=== PATIENT | female | born 1980 | race Caucasian/White ===

== ENCOUNTER 2017-09-10 15:58 | Inpatient (IN) | payer MEDICAID ==
[~2017-09-10] VITALS: Ht 154.9 cm; Wt 65.8 kg
[2017-09-10 16:01] VITALS: BP 124/77
--- NOTE | 2017-09-10 16:05 | NUR ---
Patient ambulated to bed 2. RN evaluating patient at bedside.
--- NOTE | 2017-09-10 16:13 | NUR ---
37/F PT PRESENTS TO ER W/C/O CONSTIPATION x 3 DAYS. PT DENIES INJURY OR TRAUMA, PT DENIES N/V. PAIN 5/10 HEAVINESS INTERMITENT. AAOx4, PERRLA, BREATHING EVEN AND UNLABORED. ERMD NOTIFIED OF PATIENT STATUS.
--- NOTE | 2017-09-10 16:17 | NUR ---
Dr. Davis evaluating patient at bedside.
[2017-09-10] MEDS ORDERED: NACL 0.9% 1,000 ML IV ONE (16:25)
[2017-09-10] MEDS ORDERED: KETOROLAC 30 MG/ML VIAL IVP ONE (16:25)
[2017-09-10] MEDS ORDERED: ONDANSETRON 4 MG/2 ML VIAL IVP ONE (16:25)
--- NOTE | 2017-09-10 16:29 | NUR ---
PHLEB at bedside for blood draw.
[2017-09-10 16:48] LABS: HEMOGLOBIN 14.1 g/dL (12.0-16.0); MEAN CORPUSCULAR HEMOGLOBIN 30 pg (27-31); MEAN CORPUSCULAR HGB CONC 34 g/dL (33-37); MEAN CORPUSCULAR VOLUME 88 fL (80-94); PLATELET COUNT (AUTO) 218 K/uL (140-450); RED BLOOD CELL COUNT(AUTO) 4.68 MIL/uL (4.20-5.40); RED CELL DISTRIBUTION WIDTH 12.7 % (11.6-13.7); WHITE BLOOD COUNT (AUTO) 14.1 K/uL (4.8-10.8)
[2017-09-10 16:53] LABS: APPEARANCE,URINE HAZY (CLEAR); BILIRUBIN,URINE 2+ (NEGATIVE); BLOOD, URINE NEGATIVE (NEGATIVE); COLOR,URINE YELLOW (YELLOW); LEUKOCYTE ESTERASE ,URINE NEGATIVE (NEGATIVE); NITRITE, URINE NEGATIVE (NEGATIVE); PH,URINE 6.5 (5.0-9.0); UGLUCOSE 3+ (NEGATIVE)
[2017-09-10 17:02] LABS: RBC,URINE 0-5 (RARE) /HPF (0-5); WBC,URINE 20-60 /HPF (0-5)
[2017-09-10 17:09] LABS: ALBUMIN 2.8 g/dL (3.4-5.0); ANION GAP 13.7 (8-16); BASOPHILS % (MANUAL) 0 % (0-2); CARBON DIOXIDE 27.4 mmol/L (21-32); CREATININE 0.7 mg/dL (0.6-1.3); EOSINOPHILS % (MANUAL) 0 % (0-4); LYMPHOCYTES % (MANUAL) 12 % (20-46); MONOCYTES % (MANUAL) 2 % (5-12); POTASSIUM 3.1 mmol/L (3.5-5.1); TOTAL BILIRUBIN 0.7 mg/dL (0.0-1.0)
[2017-09-10] MEDS ORDERED: LEVOFLOXACIN 500 MG/D5W PREMIX 100 ML IV ONE (17:25)
[2017-09-10] MEDS ORDERED: KCL 20 MEQ/WATER INJ PREMIX 100 ML IV ONE (17:25)
[2017-09-10] MEDS ORDERED: MAG SULF 2000 MG/WATER PREMIX 50 ML IV ONE ×2 (17:25→22:07)
[2017-09-10] MEDS ORDERED: HYDROcodone/APAP 7.5/325 MG 1 TAB PO PRN ×2 (17:50)
[2017-09-10] MEDS ORDERED: NACL 0.9% 1,000 ML IV SCH (17:50)
[2017-09-10] MEDS ORDERED: ONDANSETRON 4 MG/2 ML VIAL IM/IVP PRN (17:50)
[2017-09-10] MEDS ORDERED: DOCUSATE SODIUM 100 MG GELCAP PO PRN ×2 (17:50)
[2017-09-10] MEDS ORDERED: MORPHINE SULFATE 2 MG/ML SYR IVP PRN ×2 (17:50)
[2017-09-10] MEDS ORDERED: ACETAMINOPHEN 325 MG TAB PO PRN ×2 (17:50)
--- NOTE | 2017-09-10 17:53 | NUR ---
PT RESTING; FAMILY AT BEDSIDE.VSS; PATIENT POSITIONED FOR COMFORT; HOB ELEVATED; BEDRAILS UP X2; BED DOWN. ER MD MADE AWARE OF PT STATUS.
[2017-09-10 18:03] LABS: PROTHROMBIN TIME 10.2 secs (10.8-13.4)
--- NOTE | 2017-09-10 18:25 | NUR ---
RECEIVED PATIENT FROM ER. PATIENT IS AAOX4, AMBULATORY, AND NO SIGNS AND SYMPTOMS OF DISTRESS NOTED AT THIS TIME. LUNG SOUNDS ARE CLEAR, BOWEL SOUNDS ARE ACTIVE. PATIENT DENIES ANY PAIN AT THIS TIME. HAS IV TO LEFT AC 20G, INFUSING K-RIDER AT 25ML/HR. IV SITE IS PATENT, CLEAN, DRY AND INTACT. TELE MONITOR PRESENT. ORIENTED PATIENT TO ROOM, SIDE RAILS UP X2, INSTRUCTED PATIENT METROLOGY SPECIALIST LIGHT AND PLACED WITHIN REACH. SHE VERBALIZED UNDERSTANDING. WILL CONTINUE TO MONITOR.
--- NOTE | 2017-09-10 18:25 | NUR ---
Patient will be admitted to care of DR. ORNELAS. Admited to TELE. Will go to room 104B . Belongings list completed. Report to [facility].
[2017-09-10 19:01] LABS: AMYLASE 75 U/L (25-115); CHOL/HDL RATIO 11.2 (1-4.5); FREE T4 (FREE THYROXINE) 0.95 ng/dL (0.76-1.46); HDL CHOLESTEROL 39 mg/dL (40-60); LIPASE 982 U/L (73-393); MAGNESIUM 1.8 mg/dL (1.8-2.4); PHOSPHORUS 2.8 mg/dL (2.5-4.9); THYROID STIMULATING HORMONE 1.44 uIU/mL (0.34-3.74)
[2017-09-10 19:04] LABS: TRIGLYCERIDES 1238 mg/dL (30-150)
--- NOTE | 2017-09-10 19:27 | NUR ---
ENDORSED PATIENT TO INKJET OPERATOR RN FOR CONTINUITY OF CARE. PATIENT IN STABLE CONDITION.
--- NOTE | 2017-09-10 19:35 | NUR ---
RECEIVED REPORT FROM DAY RN. PATIENT RESTING IN BED, AWAKE ALERT ORIENTED X4, NO S/S OF DISTRESS NOTED, RESPIRATION EVEN AND UNLABORED, IV PATENT AND INTACT, INFUSING NS AT 60ML/HR. CALL LIGHT WITHIN REACH, SAFETY MEASURE ENSURED, WILL CONTINUE TO MONITOR.
--- NOTE | 2017-09-10 19:45 | NUR ---
DR. DELACRUZ PATIENT MAGNESIUM LEVEL IS 1.8 AND SHE HAS AN ORDER OF MAGNESIUM 2000 MG IVP, DR. DELACRUZ SAID," HOLD THE MAGNESIUM FOR NOW, I WILL DOUBLE CHECK AND LET YOU KNOW IF THE PATIENT NEED MAGNESIUM OR NOT."
[2017-09-10] MEDS: NACL 0.9% 1,000 ML IV SCH (19:57)
[2017-09-10 20:00] VITALS: BP 102/61
[2017-09-10] MEDS ORDERED: LACTOBACILLUS RHAMNOSUS GG 1 EACH CAP PO SCH ×2 (21:20→22:55)
[2017-09-10] MEDS ORDERED: POTASSIUM CHLORIDE 40 MEQ, LIDOCAINE 1% 25 MG in NACL 0.9% 250 ML IV ONE (21:20)
[2017-09-10] MEDS ORDERED: HYDROmorphone 1 MG/ML AMP IVP PRN (21:20)
--- NOTE | 2017-09-10 22:06 | NUR ---
DR. DELACRUZ SAID," GO AHEAD GIVE MAGNESIUM SULFATE 2000MG, BECAUSE WE ARE GOING TO ADMINISTER A LOT OF FLUIDS, WHICH WILL BRING DOWN THE MAGNESIUM LEVEL."
[2017-09-11] VITALS: BP 109/68
--- NOTE | 2017-09-11 00:44 | NUR ---
PATIENT WAS SLEEPING, BUT EASY TO AROUSE, NO S/S OF DISTRESS NOTED, RESPIRATION EVEN AND UNLABORED, CALL LIGHT WITHIN REACH, SAFETY MEASURE ENSURED, WILL CONTINUE TO MONITOR.
[2017-09-11] MEDS ORDERED: BISACODYL 5 MG TABEC PO PRN (00:50)
[2017-09-11] MEDS ORDERED: POTASSIUM CHLORIDE 10 MEQ TABER PO ONE (00:50)
[2017-09-11] MEDS: NACL 0.9% 1,000 ML IV SCH ×4 (02:06→19:46)
--- NOTE | 2017-09-11 02:43 | NUR ---
ENDORSED PLAN OF CARE TO CHARGE NURSE PABLO, PATIENT IS SLEEPING, NO S/S OF DISTRESS NOTED, RESPIRATION EVEN AND UNLABORED, PATIENT IS IN STABLE CONDITION.
--- NOTE | 2017-09-11 02:45 | NUR ---
RECEIVED PT FROM [facility]. PT IS SLEEPING, NO SIGNS OF DISTRESS.
--- NOTE | 2017-09-11 03:06 | NUR ---
SEQUENTIAL NOT APPLIED TO BILAT LEGS DUE TO PT AMBULATE TO BR.
[2017-09-11 04:04] VITALS: BP 101/58
--- NOTE | 2017-09-11 04:07 | NUR ---
AWAKE,UP TO BR WITHOUT DIFFICULTY VOIDED. V/S TAKEN. INSTRUCTED TO CALL IF NEEDED HELP.
--- NOTE | 2017-09-11 06:27 | NUR ---
RESTING QUITELY,NO COMPLAINTS.
--- NOTE | 2017-09-11 06:47 | NUR ---
PATIENT HAS BEEN SCREENED AND CATEGORIZED MODERATE NUTRITION RISK. PATIENT WILL BE SEEN WITHIN 3-5 DAYS OF ADMISSION. 09/12/17-09/14/17 PAGE DAN MS, RDN
--- NOTE | 2017-09-11 07:10 | NUR ---
ASSUMED CONTINUITY OF CARE. NO SIGNS AND SYMPTOMS OF ACUTE DISTRESS NOTED. INITIAL ASSESSMENT DONE. KEEP COMFORTABLE ON BED. EXPLAINED DIAGNOSIS, PLAN OF CARE, PAIN MANAGEMENT TEACHING, USE OF CALL LIGHT/BED/TV/BATHROOM. VERBALIZED UNDERSTANDING. CALL LIGHT WITHIN REACH.
[2017-09-11 07:23] LABS: HEMATOCRIT 36.1 % (36-48); HEMOGLOBIN 12.5 g/dL (12.0-16.0); MEAN CORPUSCULAR HEMOGLOBIN 30 pg (27-31); MEAN CORPUSCULAR HGB CONC 35 g/dL (33-37); MEAN CORPUSCULAR VOLUME 88 fL (80-94); PLATELET COUNT (AUTO) 187 K/uL (140-450); RED BLOOD CELL COUNT(AUTO) 4.11 MIL/uL (4.20-5.40); RED CELL DISTRIBUTION WIDTH 12.7 % (11.6-13.7); WHITE BLOOD COUNT (AUTO) 10.3 K/uL (4.8-10.8)
--- NOTE | 2017-09-11 07:29 | NUR ---
Patient's Plan of Care was discussed and reviewed with UC ARCHITECT: BRITT BRICE. RECEIVED PT IN BED AWAKE, ALERT ORIENTEDX4. NO SOB NOTED. DENIES ANY PAIN OR DISCOMFORT AT THIS TIME. SAFETY PRECAUTION IN PLACE. CALL LIGHT WITHIN REACH.
[2017-09-11 07:32] LABS: ANION GAP 12.2 (8-16); CARBON DIOXIDE 24.5 mmol/L (21-32); CREATININE 0.5 mg/dL (0.6-1.3); POTASSIUM 3.7 mmol/L (3.5-5.1)
[2017-09-11 07:42] LABS: CHOL/HDL RATIO 12.9 (1-4.5); HDL CHOLESTEROL 31 mg/dL (40-60)
[2017-09-11 07:43] LABS: TRIGLYCERIDES 911 mg/dL (30-150)
[2017-09-11 07:51] LABS: EOSINOPHILS % (MANUAL) 2 % (0-4); LYMPHOCYTES % (MANUAL) 14 % (20-46); MONOCYTES % (MANUAL) 6 % (5-12)
[2017-09-11 08:00] VITALS: BP 109/62
[2017-09-11] MEDS: ATORVASTATIN 20 MG TAB PO SCH (08:16)
[2017-09-11] MEDS: GEMFIBROZIL 600 MG TAB PO SCH ×2 (08:16→16:51)
[2017-09-11] MEDS: LEVOFLOXACIN 750 MG/D5W PREMIX 150 ML IV SCH (08:58)
[2017-09-11] MEDS: LACTOBACILLUS RHAMNOSUS GG 1 EACH CAP PO SCH (09:52)
[2017-09-11 12:00] VITALS: BP 111/66
--- NOTE | 2017-09-11 12:00 | NUR ---
VITALS SIGNS STABLE. NO C/O PAIN. WILL MONITOR.
--- NOTE | 2017-09-11 13:30 | NUR ---
SILK SCREENER CAME AND SAID THAT CT MACHINE WAS OUT OF SERVICE. EXPLAINED TO PT. ABOUT CT MACHINE WAS DOWN. VERBALIZED UNDERSTANDING. INFORMED CHARGE NURSE VIOLET BEST.
[2017-09-11 16:00] VITALS: BP 112/65
--- NOTE | 2017-09-11 16:06 | NUR ---
WENT TO CT VIA WHEELCHAIR. NO C/O PAIN. IN STABLE CONDITION.
--- NOTE | 2017-09-11 16:25 | NUR ---
BACK FROM CT VIA WHEEL CHAIR. NO C/O PAIN. NO SOB, NOTED. NO C/O N/V. KEEP COMFORTABLE ON BED.
--- NOTE | 2017-09-11 19:18 | NUR ---
BEDSIDE REPORT GIVEN TO ES BEST. IVF INFUSING WELL. IN STABLE CONDITION.
--- NOTE | 2017-09-11 19:35 | NUR ---
RECEIVED FROM AM NURSE AWAKE AND ALERT. FAMILY MEMBERS VISITING. ABLE TO VERBALIZE NEEDS WELL. NO SOB. DENIES ANY PAIN AT THIS TIME. ORIENTED X 4. CALL LIGHT WITH IN REACH AT ALL TIMES. TELEMETRY MONITORING. DX. OF HYPERLIPIDEMIA.
[2017-09-11 20:00] VITALS: BP 106/67
--- NOTE | 2017-09-11 22:12 | NUR ---
PT. AT THIS TIME IS SLEEPING. TELEMETRY [id number].
--- NOTE | 2017-09-12 | NUR ---
SLEEPING. TELEMETRY MONITORING. NO RESTLESSNESS NOTED.
[2017-09-12 00:12] VITALS: BP 110/66
--- NOTE | 2017-09-12 02:00 | NUR ---
AWAKE RT IVF INFILTRATED. DISCONTINUED IVF LAC. INTACT AND TOLERATED WELL. INSERTED WITH NEW IVF SITE TO LEFT HAND #22 BY CHARGE NURSE. GOOD BLOOD RETURN. TOLERATED WELL.
[2017-09-12] MEDS: NACL 0.9% 1,000 ML IV SCH (05:03)
[2017-09-12 05:07] VITALS: BP 94/54
[2017-09-12] MEDS: GEMFIBROZIL 600 MG TAB PO SCH (06:15)
--- NOTE | 2017-09-12 06:20 | NUR ---
SLEPT WELL THIS SHIFT. NO COMPLAINTS OF ANY PAIN DONE. TELEMETRY MONITORING.
[2017-09-12 06:53] LABS: BASOPHILS % (AUTO) 0.2 % (0.0-2.0); EOSINOPHILS # (AUTO) 0.1 K/uL (0-0.4); EOSINOPHILS % (AUTO) 1.3 % (0.0-4.0); HEMATOCRIT 35.5 % (36-48); HEMOGLOBIN 11.9 g/dL (12.0-16.0); LYMPHOCYTES # (AUTO) 1.8 K/uL (2.5-16.5); LYMPHOCYTES % (AUTO) 18.4 % (20.5-51.1); MEAN CORPUSCULAR HEMOGLOBIN 30 pg (27-31); MEAN CORPUSCULAR HGB CONC 34 g/dL (33-37); MEAN CORPUSCULAR VOLUME 89 fL (80-94); MONOCYTES # (AUTO) 0.7 K/uL (0.8-1.0); MONOCYTES % (AUTO) 6.9 % (1.7-9.3); NEUTROPHILS # (AUTO) 7.4 K/uL (1.8-7.7); NEUTROPHILS % (AUTO) 73.2 % (42.2-75.2); PLATELET COUNT (AUTO) 215 K/uL (140-450); RED BLOOD CELL COUNT(AUTO) 4.01 MIL/uL (4.20-5.40); RED CELL DISTRIBUTION WIDTH 12.9 % (11.6-13.7)
--- NOTE | 2017-09-12 07:20 | NUR ---
REPORT RECIEVED FROM NIGTH SHIFT, PT AWAKE ALERT, RESP EVEN ULABORED, SKIN WARM DRY COLOR WNL, DENIES PAIN OR DISCOMFORT, INITIAL ASSESSMENT COMPLETED, CALL GUPTA WITHIN REACH, SIDE RAILS UP BED LCOKED IN LOW POSITION , PLAN OF CARE REVIEWED, PT VERBALIZED FULL UNDERSTANDING, WILL CONTINUE TO MONITOR.
[2017-09-12 07:21] LABS: ANION GAP 13.7 (8-16); CREATININE 0.6 mg/dL (0.6-1.3); POTASSIUM 3.7 mmol/L (3.5-5.1)
[2017-09-12 08:00] VITALS: BP 118/72
[2017-09-12] MEDS: LACTOBACILLUS RHAMNOSUS GG 1 EACH CAP PO SCH (08:17)
[2017-09-12] MEDS: ATORVASTATIN 20 MG TAB PO SCH (08:17)
[2017-09-12] MEDS: LEVOFLOXACIN 750 MG/D5W PREMIX 150 ML IV SCH (09:31)
--- NOTE | 2017-09-12 09:33 | NUR ---
PT UP AMBULATED AROUND THE HALLWAY WITH STEADY GAIT, LEVAQUIN STARTED SCHEDULED, IV SITE CLEAR, PT DENIES ANY IMMEDIATE NEEDS, WILL CONTINUE TO MONITOR.
[2017-09-12] MEDS ORDERED: METF850T PO (10:38)
[2017-09-12] MEDS ORDERED: LACT10CA PO (10:38)
[2017-09-12] MEDS ORDERED: ACET-9529 PO (10:38)
[2017-09-12] MEDS ORDERED: ATOR20TA40 PO (10:38)
[2017-09-12] MEDS ORDERED: GEMF600T8 PO (10:38)
[2017-09-12] MEDS ORDERED: LEVO750T2 PO (10:42)
--- NOTE | 2017-09-12 11:30 | NUR ---
DISCHARGE INSTRUCTION AND RX GIVEN AND EXPLAINED TO PT, PT VERBALIZED FULL UNDERSTANDING, PT DENIES ANY QUESTIONS OR CONERNS, PT UP OUT OF BED WITHOUT PROBELM, AWAITING BROTHER TO PICK HER UP.
--- NOTE | 2017-09-12 12:05 | NUR ---
IV DC'D CATH TIP INTACT, BLEEDING CONTROLLED, PT ALDO WELL, PT ESCORTED OUT TO FRONT LOBBY, PT STATES SHE WILL TAKE A CAB HOME. DC HOME NOW.
[2017-09-12] MEDS ORDERED: metFORMIN 850 MG TAB PO SCH (17:00)
== END 2017-09-12 12:05 | disposition home or self-care (01) | DRG 720 ==
LOC: MED 15:58 → MTU 17:59
PROVIDERS: ADMIT Family Medicine Sports Medicine; ATTEND Family Medicine Sports Medicine
DX: A41.9 Sepsis, unspecified organism (principal); N17.0 Acute kidney failure with tubular necrosis; E43 Unspecified severe protein-calorie malnutrition; K85.90 Acute pancreatitis without necrosis or infection, unspecified; K76.0 Fatty (change of) liver, not elsewhere classified; E87.8 Other disorders of electrolyte and fluid balance, not elsewhere classified; N39.0 Urinary tract infection, site not specified; E78.1 Pure hyperglyceridemia; D17.71 Benign lipomatous neoplasm of kidney; E83.51 Hypocalcemia; E11.65 Type 2 diabetes mellitus with hyperglycemia; R80.9 Proteinuria, unspecified; E78.00 Pure hypercholesterolemia, unspecified; E87.1 Hypo-osmolality and hyponatremia; E87.6 Hypokalemia; Z68.27 Body mass index [BMI] 27.0-27.9, adult; K59.00 Constipation, unspecified
CPT/HCPCS: 36415; 71010; 76700; 80048; 80053; 81001; 81025; 82150; 83036; 83605; 83690; 83735; 83880; 84100; 84436; 84439; 84443; 84479; 85025; 85610; 87040; 87081; 87086; 93005; 96361; 96365; 96368; 96375; 99291; J1885; J1956; J2001; J2405; J3475; J3480; J7030; Q0092; Q9967

== ENCOUNTER 2019-06-15 14:00 | Emergency (ER) | payer MEDICAID ==
[~2019-06-15] VITALS: Ht 154.9 cm; Wt 78.5 kg
[~2019-06-15 14:00] MED LIST: ACET-9529 PO; ATOR20TA40 PO; GEMF-65 PO; LACT10CA PO; LEVO750T2 PO; METF850T PO
[2019-06-15 14:03] VITALS: BP 120/84
--- NOTE | 2019-06-15 14:11 | NUR ---
PT TO WAIT IN ER LOBBY. VSS. AA0X4
--- NOTE | 2019-06-15 17:12 | NUR ---
VSS AT THIS TIME. AA0X4. PT BACK TO ER LOBBY UNTIL BED IS AVAILABLE
--- NOTE | 2019-06-15 17:19 | NUR ---
PT PLACED IN BED 9.
--- NOTE | 2019-06-15 17:27 | NUR ---
PT BIB FAMILY C/O GENERALIZED BODY PAIN AND LT SIDED ABD PAIN X 2 DAYS, PT THINKS PAIN IS REACTION TO CARBAMAZEPINE PT IS TAKING FOR TRIGEMINAL NEURALGIA. PATIENT IS SUPPOSED TO RECIEVE A BRAIN MRI PER HER PCP, NOT YET SCHEDULED. STATES PAIN IS UNBEARABLE AT THIS TIME. PMH- PANCREATITIS, TRIGEMINAL NEUROLGIA RX- CARBAMAZEPINE
[2019-06-15] MEDS ORDERED: NACL 0.9% 1,000 ML IV SCH (18:08)
[2019-06-15 18:48] LABS: BASOPHILS % (AUTO) 0.5 % (0.0-2.0); EOSINOPHILS # (AUTO) 0.4 K/uL (0-0.4); EOSINOPHILS % (AUTO) 5.1 % (0.0-4.0); HEMATOCRIT 43.1 % (36-48); HEMOGLOBIN 14.7 g/dL (12.0-16.0); MEAN CORPUSCULAR HEMOGLOBIN 30 pg (27-31); MEAN CORPUSCULAR HGB CONC 34 g/dL (33-37); MEAN CORPUSCULAR VOLUME 87.8 fL (80-94); MONOCYTES # (AUTO) 0.5 K/uL (0.8-1.0); MONOCYTES % (AUTO) 5.9 % (1.7-9.3); NEUTROPHILS # (AUTO) 5.5 K/uL (1.8-7.7); NEUTROPHILS % (AUTO) 64.5 % (42.2-75.2); PLATELET COUNT (AUTO) 249 K/uL (140-450); RED BLOOD CELL COUNT(AUTO) 4.91 MIL/uL (4.20-5.40); RED CELL DISTRIBUTION WIDTH 12.9 % (11.6-13.7); WHITE BLOOD COUNT (AUTO) 8.5 K/uL (4.8-10.8)
[2019-06-15 18:58] LABS: APPEARANCE,URINE CLEAR (CLEAR); BILIRUBIN,URINE NEGATIVE (NEGATIVE); BLOOD, URINE NEGATIVE (NEGATIVE); COLOR,URINE YELLOW (YELLOW); LEUKOCYTE ESTERASE ,URINE NEGATIVE (NEGATIVE); NITRITE, URINE NEGATIVE (NEGATIVE); UGLUCOSE NEGATIVE (NEGATIVE)
--- NOTE | 2019-06-15 19:19 | NUR ---
REPORT RECEIVED FROM CAMILA RANGEL. PT AWAKE, LAYING ON BED. C/O ABDOMINAL AND LEG PAIN 04/02. PT VSS. ERMRay AWARE. WILL CONTINUE TO MONITOR.
[2019-06-15] MEDS ORDERED: KETOROLAC 15 MG/ML VIAL IVP ONE (19:35)
[2019-06-15 19:44] LABS: ALBUMIN 3.8 g/dL (3.4-5.0); CARBON DIOXIDE 31.1 mmol/L (21-32); CREATININE 0.7 mg/dL (0.6-1.3); TOTAL BILIRUBIN 0.2 mg/dL (0.0-1.0)
[2019-06-15 20:02] LABS: ANION GAP 10.9 (8-16)
[2019-06-15 20:39] VITALS: BP 120/78
--- NOTE | 2019-06-15 20:39 | NUR ---
PT DISCHARGED WITH PAPERWORK. NO RX PROVIDED. EDUCATED PT REGARDING DISCHARGE DIAGNOSIS. PT VERBALIZED UNDERSTANDING OF TEACHING. TOLD PT TO FOLLOW UP WITH PCP AND WHEN TO RETURN TO ED. PT VSS. ALL QUESTIONS ANSWERED.
== END 2019-06-15 20:39 | disposition home or self-care (01) ==
LOC: MED 14:00
DX: M79.10 Myalgia, unspecified site (principal); R10.9 Unspecified abdominal pain; R51 Headache; Z79.2 Long term (current) use of antibiotics; Z79.84 Long term (current) use of oral hypoglycemic drugs; Z79.899 Other long term (current) drug therapy; Z86.69 Personal history of other diseases of the nervous system and sense organs
CPT/HCPCS: 36415; 80053; 81003; 81025; 83690; 84703; 85025; 96374; 99283; J1885; J7030